=== PATIENT | male | born 1975 ===

== ENCOUNTER → 2024-06-24 07:30 | Outpatient (REF) | payer OTHER, SELFPAY | LOC: CLAB 07:30 | PROVIDERS: ATTENDING PHYSICIAN Podiatrist Foot & Ankle Surgery | DX: S92.812K Other fracture of left foot, subsequent encounter for fracture with nonunion (principal); M79.672 Pain in left foot; S92.902A Unspecified fracture of left foot, initial encounter for closed fracture | CPT/HCPCS: 88304; 88311 ==